=== PATIENT | male | born 1955 | race Caucasian/White ===

== ENCOUNTER 2016-09-27 09:58 | Outpatient (CLI) | payer BC | END 2016-09-27 09:59 | disposition home or self-care (01) | DX: Z79.899 Other long term (current) drug therapy (principal) ==

== ENCOUNTER 2017-02-11 09:23 | Outpatient (CLI) | payer BC | END 2017-02-11 09:24 | disposition home or self-care (01) | DX: E74.9 Disorder of carbohydrate metabolism, unspecified (principal) ==

== ENCOUNTER 2017-09-22 09:28 | Outpatient (CLI) | payer BC ==
--- NOTE | 2017-09-22 12:53 | CT Report ---
CT OF THE ABDOMEN AND PELVIS WITHOUT CONTRAST: 09/22/2017 CLINICAL INDICATION: Kidney stones. TECHNIQUE: Axial CT images of the abdomen and pelvis were obtained without oral or intravenous contrast, according to renal stone protocol. No previous CT is available for comparison. FINDINGS: Limited evaluation of the lung bases is unremarkable. ABDOMEN: The liver demonstrates diffuse decrease in attenuation, compatible with fatty infiltration. The spleen, pancreas and adrenal glands are unremarkable. There is bilateral nephrolithiasis, with calculi measuring up to 9 mm on the left and 8 mm on the right. Bilateral cortical cysts are present. No hydronephrosis is seen. The gallbladder is not dilated. No bowel dilatation, free gas, or free fluid is present. No abdominal adenopathy is seen. PELVIS: The appendix is seen in the right lower quadrant, and is normal in caliber. Image quality in the lower pelvis is degraded by streak artifact from the patient's right hip replacement. No definite distal ureterolithiasis is seen. No free fluid or pelvic adenopathy is appreciated. Osseous structures demonstrate degenerative and postsurgical changes. IMPRESSION: BILATERAL NEPHROLITHIASIS, WITHOUT EVIDENCE OF HYDRONEPHROSIS. FATTY INFILTRATION OF THE LIVER. In accordance with CT protocol optimization, one or more of the following dose reduction techniques were utilized for this exam: automated exposure control, adjustment of mA and/or KV based on patient size, or use of iterative reconstructive technique. TD: 09/22/2017 12:51
== END 2017-09-22 09:29 | disposition home or self-care (01) ==
LOC: DI 09:28
PROVIDERS: ATTEND Urology
DX: N20.0 Calculus of kidney (principal); K76.0 Fatty (change of) liver, not elsewhere classified
CPT/HCPCS: 74176

== ENCOUNTER 2017-11-11 08:00 | Outpatient (CLI) | payer BC ==
[2017-11-11 08:52] LABS: HB2 TOTAL 15.8 g/dL; HEMOGLOBIN A1C 0.74 g/dL; HEMOGLOBIN A1C % 6.4 % (4.6-6.2)
[2017-11-11 09:02] LABS: CHOL/HDL RATIO 4.5 (<5.0); CHOLESTEROL 127 mg/dL; HDL CHOLESTEROL 28 mg/dL; LDL CHOLESTEROL,CALCULATED 53 mg/dL; LDL/HDL RATIO 1.9 (<3.6); VLDL CHOLESTEROL 46 mg/dL
== END 2017-11-11 08:01 | disposition home or self-care (01) ==
LOC: LAB 08:00
PROVIDERS: ATTEND Family Medicine
DX: E11.9 Type 2 diabetes mellitus without complications (principal); E78.00 Pure hypercholesterolemia, unspecified; Z79.899 Other long term (current) drug therapy
CPT/HCPCS: 36415; 80061; 83036; 83721

== ENCOUNTER 2018-05-07 07:40 | Outpatient (CLI) | payer BC, MEDICARE ==
[2018-05-07 08:24] LABS: ALBUMIN 4.2 g/dL (3.2-5.5); ALBUMIN/GLOBULIN RATIO 1.4 (1.0-2.2); ALKALINE PHOSPHATASE 51 IU/L (42-121); ALT ALANINE AMINOTRANSFERASE 52 IU/L (10-60); AST ASPARTATE AMINOTRANSFERASE 37 IU/L (10-42); BILIRUBIN,TOTAL 0.5 mg/dL (0.2-1.0); BUN - BLOOD UREA NITROGEN 26 mg/dL (6-20); CALCIUM 9.5 mg/dL (8.5-10.3); CARBON DIOXIDE - CO2 24 mmol/L (21-32); CHLORIDE 101 mmol/L (101-111); CHOL/HDL RATIO 4.1 (<5.0); CHOLESTEROL 116 mg/dL; CREATININE 0.9 mg/dL (0.6-1.2); GFR - MDRD 85 (>89); GLUCOSE 155 mg/dL (70-100); HDL CHOLESTEROL 28 mg/dL; LDL CHOLESTEROL,CALCULATED 43 mg/dL; LDL/HDL RATIO 1.5 (<3.6); SODIUM 134 mmol/L (135-145); TOTAL PROTEIN 7.3 g/dL (6.7-8.2); VLDL CHOLESTEROL 45 mg/dL
[2018-05-07 08:32] LABS: HGB - HEMOGLOBIN 13.7 g/dL (14.0-18.0); MEAN CORPUSCULAR HEMOGLOBIN 29.5 pg (27.0-31.0); MEAN CORPUSCULAR HGB CONC 33.9 g/dL (32.0-36.0); MEAN PLATELET VOLUME 7.2 fL (7.4-11.4); RED BLOOD COUNT 4.63 10^6/uL (4.70-6.10); RED CELL DISTRIBUTION WIDTH 13.9 % (12.0-15.0); WHITE BLOOD COUNT 5.1 x10^3/uL (4.8-10.8)
[2018-05-07 08:35] LABS: HB2 TOTAL 14.8 g/dL; HEMOGLOBIN A1C 0.74 g/dL; HEMOGLOBIN A1C % 6.7 % (4.6-6.2)
[2018-05-07 09:14] LABS: BILIRUBIN,URINE NEGATIVE (NEGATIVE); GLUCOSE, URINE (UA) NEGATIVE (NEGATIVE); KETONES,URINE (UA) NEGATIVE (NEGATIVE); LEUKOCYTE ESTERASE, URINE NEGATIVE (NEGATIVE); NITRITE,URINE NEGATIVE (NEGATIVE); OCCULT BLOOD,URINE NEGATIVE (NEGATIVE); PH,URINE 5.5 PH (5.0-7.5); PROTEIN,URINE NEGATIVE (NEGATIVE); UROBILINOGEN,URINE 0.2 (NORMAL) E.U./dL (NORMAL)
[2018-05-07 09:27] LABS: CLARITY,URINE CLEAR (CLEAR)
== END 2018-05-07 07:41 | disposition home or self-care (01) ==
LOC: LAB 07:40
PROVIDERS: ATTEND Family Medicine
DX: E11.9 Type 2 diabetes mellitus without complications (principal); E78.1 Pure hyperglyceridemia; Z79.899 Other long term (current) drug therapy; I10 Essential (primary) hypertension; R80.9 Proteinuria, unspecified; M19.90 Unspecified osteoarthritis, unspecified site
CPT/HCPCS: 36415; 80053; 80061; 81001; 81003; 83036; 83721; 84443; 85027; 87086

== ENCOUNTER 2018-08-18 11:15 | Outpatient (CLI) | payer MEDICARE | END 2018-08-18 11:16 | disposition home or self-care (01) | LOC: LAB 11:15 | PROVIDERS: ATTEND Urology | DX: C61 Malignant neoplasm of prostate (principal) | CPT/HCPCS: 36415; 84153 ==

== ENCOUNTER 2019-01-01 09:30 | Outpatient (CLI) | payer MEDICARE ==
--- NOTE | 2019-01-01 15:29 | XRAY Report ---
Reason: THORACIC PAIN Procedure Date: 01/01/2019 Accession Number: [id number] / [id number] Procedure: XR - Thoracic Spine 2 View CPT Code: FULL RESULT: EXAM: THORACIC SPINE RADIOGRAPHY EXAM DATE: 01/01/2019 09:37 AM. CLINICAL HISTORY: Chronic thoracic spine pain. COMPARISON: ABDOMEN/PELVIS W/O 09/22/2017 9:45 AM. TECHNIQUE: 2 views. FINDINGS: Alignment: Mild dextroscoliotic curvature of the upper thoracic spine at approximately T3-T4 measures 5 degrees. No thoracic spondylolisthesis. There is however mild grade 1 anterolisthesis at the C4-C5 level measuring 3 mm. Bones: Diffuse osteopenia present. No compression fracture or bony lesion identified. Disks: Mild to moderate mid to upper thoracic degenerative disk disease present. There is also moderate C5-C7 and mild CT-C5 cervical degenerative disk disease. Soft Tissues: Normal. The visualized lungs and cardiomediastinal silhouette are normal. IMPRESSION: 1. Mild to moderate cervical and thoracic degenerative disk disease as described. 2. Mild upper thoracic dextroscoliosis. 3. Grade 1 anterolisthesis C4-C5. RADIA
== END 2019-01-01 23:59 | disposition home or self-care (01) ==
LOC: DI 09:30
PROVIDERS: ATTEND Family Medicine
DX: M51.34 Other intervertebral disc degeneration, thoracic region (principal); M50.322 Other cervical disc degeneration at C5-C6 level; M43.12 Spondylolisthesis, cervical region; M41.84 Other forms of scoliosis, thoracic region
CPT/HCPCS: 72070

== ENCOUNTER 2019-01-04 08:10 | Outpatient (CLI) | payer MEDICARE ==
[2019-01-04 09:14] LABS: ALBUMIN 4.1 g/dL (3.2-5.5); ALBUMIN/GLOBULIN RATIO 1.3 (1.0-2.2); ALKALINE PHOSPHATASE 49 IU/L (42-121); ALT ALANINE AMINOTRANSFERASE 52 IU/L (10-60); AST ASPARTATE AMINOTRANSFERASE 40 IU/L (10-42); BILIRUBIN,TOTAL 0.6 mg/dL (0.2-1.0); BUN - BLOOD UREA NITROGEN 20 mg/dL (6-20); CHOL/HDL RATIO 4.2 (<5.0); CHOLESTEROL 143 mg/dL; CREATININE 1.1 mg/dL (0.6-1.2); GFR - MDRD 67 (>89); HDL CHOLESTEROL 34 mg/dL; LDL CHOLESTEROL,CALCULATED 67 mg/dL; TOTAL PROTEIN 7.3 g/dL (6.7-8.2); VLDL CHOLESTEROL 42 mg/dL
[2019-01-04 09:37] LABS: HB2 TOTAL 14.6 g/dL; HEMOGLOBIN A1C 0.73 g/dL; HEMOGLOBIN A1C % 6.7 % (4.6-6.2)
[2019-01-04 09:57] LABS: CALCIUM 9.7 mg/dL (8.5-10.3); CARBON DIOXIDE - CO2 23 mmol/L (21-32); CHLORIDE 102 mmol/L (101-111); GLUCOSE 148 mg/dL (70-100); SODIUM 137 mmol/L (135-145)
== END 2019-01-04 08:11 | disposition home or self-care (01) ==
LOC: LAB 08:10
PROVIDERS: ATTEND Family Medicine
DX: E11.9 Type 2 diabetes mellitus without complications (principal); I10 Essential (primary) hypertension; E78.1 Pure hyperglyceridemia
CPT/HCPCS: 36415; 80053; 80061; 83036; 83721

== ENCOUNTER 2019-08-02 10:00 | Outpatient (CLI) | payer MEDICARE ==
[2019-08-02 10:42] LABS: ALBUMIN 4.3 g/dL (3.2-5.5); BILIRUBIN,DIRECT 0.1 mg/dL (0.1-0.5); BILIRUBIN,TOTAL 0.5 mg/dL (0.2-1.0); TOTAL PROTEIN 7.5 g/dL (6.7-8.2)
[2019-08-03 12:05] LABS: HEPATITIS A IGM NON-REACTIVE (NON-REACTIVE); HEPATITIS B SURFACE ANTIGEN NON-REACTIVE (NON-REACTIVE); HEPATITIS C ANTIBODY NON-REACTIVE (NON-REACTIVE)
== END 2019-08-02 10:01 | disposition home or self-care (01) ==
LOC: LAB 10:00
PROVIDERS: ATTEND Family Medicine
DX: E78.00 Pure hypercholesterolemia, unspecified (principal); R74.0 Nonspecific elevation of levels of transaminase and lactic acid dehydrogenase [LDH]; E66.9 Obesity, unspecified; N18.3 Chronic kidney disease, stage 3 (moderate)
CPT/HCPCS: 36415; 80074; 80076

== ENCOUNTER 2020-09-07 07:28 | Outpatient (CLI) | payer MEDICARE ==
[2020-09-07 07:59] LABS: BILIRUBIN,URINE NEGATIVE (NEGATIVE); GLUCOSE, URINE (UA) NEGATIVE (NEGATIVE); KETONES,URINE (UA) NEGATIVE (NEGATIVE); LEUKOCYTE ESTERASE, URINE NEGATIVE (NEGATIVE); NITRITE,URINE NEGATIVE (NEGATIVE); OCCULT BLOOD,URINE TRACE-INTA (NEGATIVE); PROTEIN,URINE NEGATIVE (NEGATIVE); UROBILINOGEN,URINE 0.2 (NORMAL) E.U./dL (NORMAL)
[2020-09-07 08:01] LABS: CLARITY,URINE CLEAR (CLEAR)
[2020-09-07 08:10] LABS: BACTERIA,URINE Few /HPF (None Seen); CASTS, URINE 0-2 Hyaline Casts /LPF; MUCUS,URINE Marked Strands; RBC,URINE 0-5 /HPF (0-5); SQUAMOUS EPITHELIAL CELL,UR RARE Squamous (<= Few)
[2020-09-07 08:55] LABS: ALBUMIN 4.2 g/dL (3.2-5.5); ALBUMIN/GLOBULIN RATIO 1.5 (1.0-2.2); ALKALINE PHOSPHATASE 55 IU/L (42-121); ALT ALANINE AMINOTRANSFERASE 50 IU/L (10-60); AST ASPARTATE AMINOTRANSFERASE 35 IU/L (10-42); BILIRUBIN,TOTAL 0.4 mg/dL (0.2-1.0); BUN - BLOOD UREA NITROGEN 30 mg/dL (6-20); CARBON DIOXIDE - CO2 23 mmol/L (21-32); CHLORIDE 102 mmol/L (101-111); CHOL/HDL RATIO 3.9 (<5.0); CHOLESTEROL 124 mg/dL; CREATININE 1.2 mg/dL (0.6-1.2); GLUCOSE 141 mg/dL (70-100); HDL CHOLESTEROL 32 mg/dL; LDL CHOLESTEROL,CALCULATED 47 mg/dL; LDL/HDL RATIO 1.5 (<3.6); VLDL CHOLESTEROL 45 mg/dL
[2020-09-07 12:42] LABS: HEMOGLOBIN A1c% 6.8 % (4.27-6.07)
== END 2020-09-07 07:29 | disposition home or self-care (01) ==
LOC: LAB 07:28
PROVIDERS: ATTEND Family Medicine
DX: E11.9 Type 2 diabetes mellitus without complications (principal); Z79.899 Other long term (current) drug therapy; E03.9 Hypothyroidism, unspecified; E66.9 Obesity, unspecified; C61 Malignant neoplasm of prostate; E78.00 Pure hypercholesterolemia, unspecified
CPT/HCPCS: 36415; 80053; 80061; 81001; 83036; 83721; 84443

== ENCOUNTER 2022-09-04 09:37 | Outpatient (CLI) | payer MEDICARE ==
--- NOTE | 2022-09-04 19:24 | XRAY Report ---
PROCEDURE: Abdomen 1 View X-Ray INDICATIONS: NEPHROLTHIASIS TECHNIQUE: One view of the abdomen acquired. COMPARISON: CT of abdomen and pelvis dated 09/22/2017 FINDINGS: Surgical changes and devices: There is prior right total hip arthroplasty. Bowel: Bowel gas pattern is normal. Soft tissues: Multiple calcifications are seen projecting in the region of bilateral kidneys measures 5 mm in upper and lower pole of right kidney and up to 6 mm in size and lower pole of left kidney. V isualized solid organ contours appear normal in size. Bones: No suspicious bony lesions. IMPRESSION: Bilateral renal calculi as above. No bowel obstruction or gross free air. Reviewed by: Keyon Longoria MD on 09/04/2022 7:23 PM PST Approved by: Keyon Longoria MD on 09/04/2022 7:23 PM PST Station ID: [id number]
== END 2022-09-04 09:38 | disposition home or self-care (01) ==
LOC: DI 09:37
PROVIDERS: ATTEND Urology
DX: Z87.442 Personal history of urinary calculi (principal); N20.0 Calculus of kidney; Z12.5 Encounter for screening for malignant neoplasm of prostate
CPT/HCPCS: 36415; 74018; G0103; 84153

== ENCOUNTER 2022-09-04 09:41 | Outpatient (CLI) | payer MEDICARE | END 2022-09-04 09:42 | disposition home or self-care (01) | LOC: LAB 09:41 | PROVIDERS: ATTEND Urology | DX: Z12.5 Encounter for screening for malignant neoplasm of prostate (principal) | CPT/HCPCS: 36415; G0103; 84153 ==

== ENCOUNTER 2022-09-18 19:32 | Emergency (ER) | payer MEDICARE ==
[2022-09-18 20:27] LABS: BASOPHILS # (AUTO) 0.1 10^3/uL (0.0-0.1); BASOPHILS % (AUTO) 0.8 %; EOSINOPHILS # (AUTO) 0.4 10^3/uL (0.0-0.7); EOSINOPHILS % (AUTO) 6.5 %; HCT - HEMATOCRIT 41.4 % (42.0-52.0); HGB - HEMOGLOBIN 13.5 g/dL (14.0-18.0); LYMPHOCYTES # (AUTO) 1.2 10^3/uL (1.5-3.5); LYMPHOCYTES % (AUTO) 18.5 %; MEAN CORPUSCULAR HEMOGLOBIN 27.8 pg (27.0-31.0); MEAN CORPUSCULAR HGB CONC 32.6 g/dL (32.0-36.0); MEAN CORPUSCULAR VOLUME 85.2 fL (80.0-94.0); MONOCYTES # (AUTO) 0.5 10^3/uL (0.0-1.0); MONOCYTES % (AUTO) 7.2 %; NEUTROPHILS # (AUTO) 4.4 10^3/uL (1.5-6.6); NEUTROPHILS % (AUTO) 66.2 %; PLT - PLATELET COUNT 289 10^3/uL (130-450); RED BLOOD COUNT 4.86 10^6/uL (4.70-6.10); RED CELL DISTRIBUTION WIDTH 13.1 % (12.0-15.0); WHITE BLOOD COUNT 6.7 x10^3/uL (4.8-10.8)
--- NOTE | 2022-09-18 20:35 | ED Physician Documentation ---
PD HPI CHEST PAIN - Stated complaint Stated Complaint: CHEST PX - Chief complaint Chief Complaint: Cardiac - History obtained from History obtained from: Patient - History of Present Illness Recently seen: Not recently seen - Additional information Additional information: HPI from patient. Approximately 30 to 45 minutes prior to arrival to the emergency department, patient was at home lying in bed awake when he had a sudden onset of midline/right parasternal chest pain. He describes severe chest pain that did not have any apparent exacerbating or ameliorating factors. He denies shortness of breath, although he says he does not recall because he was focused on the intense chest pain. Patient's spouse, in the ER at bedside, says that she noted, and even commented to the patient, that he appeared to be having trouble breathing. The symptoms have improved significantly by the time of this evaluation. Patient says the only the time he had a similar sensation was approximately 15 years ago when he had a nuclear stress test. Per his description, the discomfort he had at that time was when he was injected with medication for the stress test, rather than pain that preceded the procedure. Patient has no known cardiac medical history/problems. Patient underwent right total knee replacement June 2022 (3 months ago). He says he has had right knee and, to a lesser extent, right lower leg swelling since the procedure, although this has been steadily improving. Denies fever, cough/hemoptysis. Review of Systems Constitutional: denies: Fever, Chills, Sweats Cardiac: reports: Chest pain / pressure, Pedal edema. denies: Palpitations Respiratory: reports: Dyspnea. denies: Cough GI: reports: Reviewed and negative PD PAST MEDICAL HISTORY - Past Medical History Past Medical History: Yes Cardiovascular: Hypertension, High cholesterol Endocrine/Autoimmune: Type 2 diabetes - Past Surgical History Past Surgical History: Yes Other past surgical history: TKR - Present Medications Home Medications: Ambulatory Orders Medication Instructions Recorded Confirmed Amlodipine Besylate [Norvasc] 10 mg PO 09/18/22 Aspirin [Aspirin EC] 81 mg PO 09/18/22 Atorvastatin [Lipitor] 40 mg PO DAILY 09/18/22 09/18/22 Bupropion HCl [Wellbutrin Xl] 300 mg PO 09/18/22 Citalopram Hydrobromide [Celexa] 20 mg PO DAILY 09/18/22 09/18/22 Fenofibrate Nanocrystallized 145 mg PO 09/18/22 [Tricor] Omeprazole Magnesium 20 mg PO 09/18/22 Ropinirole HCl 0.5 mg PO DAILY 09/18/22 09/18/22 Valsartan/Hydrochlorothiazide 320 mg PO DAILY 09/18/22 09/18/22 [Diovan Hct 320-25 mg Tablet] atenoloL [Tenormin] 25 mg PO DAILY 09/18/22 09/18/22 metFORMIN [Glucophage] 500 mg PO ONCE 09/18/22 09/18/22 traMADol [Ultram] 50 mg PO Q4HR PRN 09/18/22 09/18/22 traZODone [Desyrel] 50 mg PO BID 09/18/22 09/18/22 - Allergies Allergies/Adverse Reactions: Allergies Allergy/AdvReac Type Severity Reaction Status Date / Time No Known Drug Allergies Allergy Verified 09/18/22 19:51 PD ED PE NORMAL - Vitals Vital signs reviewed: Yes - General General: Alert and oriented X 3, No acute distress, Well developed/nourished - Cardiac Cardiac: RRR, No murmur, No gallop, No rub - Respiratory Respiratory: No respiratory distress, Clear bilaterally - Abdomen Abdomen: Soft, Non tender - Extremities Extremities: Other (mild right knee edema without lower leg edema either leg) Results - Vitals Vitals: Oxygen O2 Source Room air - EKG (time done) No standard instances Rate: Rate (enter#) (94) Rhythm: NSR [place]: Normal Intervals: Normal [place] QRS: Normal Ischemia: Normal ST segments - Labs Labs: Laboratory Tests 09/18/22 09/18/22 09/18/22 20:23 20:23 20:23 WBC 6.7 RBC 4.86 Hgb 13.5 L Hct 41.4 L MCV 85.2 MCH 27.8 MCHC 32.6 RDW 13.1 Plt Count 289 MPV 9.0 Neut # (Auto) 4.4 Lymph # (Auto) 1.2 L [place] # (Auto) 0.5 Eos # (Auto) 0.4 Baso # (Auto) 0.1 Absolute Nucleated RBC 0.00 Nucleated RBC % 0.0 Sodium 134 L Potassium 4.2 Chloride 100 L Carbon Dioxide 23 Anion Gap 11.0 BUN 26 H Creatinine 1.0 Estimated GFR (MDRD) 74 L Glucose 183 H Calcium 9.9 Total Bilirubin 0.4 AST 48 H ALT 63 H Alkaline Phosphatase 58 Troponin I High Sens 4.2 Total Protein 7.0 Albumin 3.8 Globulin 3.2 Albumin/Globulin Ratio 1.2 Lipase 66 H - Rads (name of study) chest xray Radiology: Prelim report reviewed, EMP read indepedently, See rad report CTA chest Radiology: Prelim report reviewed, See rad report PD Medical Decision Making - ED course Complexity details: reviewed results, re-evaluated patient, considered differential, d/w patient ED course: No concerning/diagnostic findings on blood tests including CBC, ER abdominal panel, hs-cTn. Unremarkable CXR. Given the sudden onset of chest pain at rest with dyspnea, and considering his somewhat recent right TKR, PE is considered and CTA chest performed; there are no concerning nor diagnostic findings on this study, including PE, dissection, aneurysm. Incidental note of non-obstructing left intrarenal stones as well as of hepatic steatosis. I reviewed these findings with patient; given that his transaminases are both (very) mildly elevated, the combination of hepatic steatosis and elevated AST/ALT might warrant reevaluation by PMD and I advised patient to follow up both for reevaluation of tonight's symptoms as well as to discuss any relevant abnormalities on CT and blood tests. Departure - Departure Disposition: 01 Home, Self Care Clinical Impression: Chest pain Qualifiers: Chest pain type: unspecified Qualified Code(s): R07.9 - Chest pain, unspecified Condition: Good Instructions: ED Chest Pain Atypical Unkn Cause Comments: As we discussed, there are no concerning findings on tonight's tests including the blood test, EKG, CT scan of your chest. There were some abnormalities that are very slight and are not of immediate concern, but your primary care provider might want to do some further testing regarding both the possible nature of the cause of tonight's symptoms as well as the abnormalities noted on the blood test. The CAT scans abnormalities included hepatic steatosis ("fatty liver"). This is usually not a concerning finding, and can be followed up with your primary care provider. You had very mild abnormalities in your liver enzyme tests (AST/ALT). Also noted on the CAT scan were several left kidney stones, but these are in the kidney; none of the stones is causing any blockage and thus are not causing the symptoms. Discharge Date/Time: 09/19/22 01:06
[2022-09-18 20:42] LABS: ALBUMIN 3.8 g/dL (3.2-5.5); ALBUMIN/GLOBULIN RATIO 1.2 (1.0-2.2); BILIRUBIN,TOTAL 0.4 mg/dL (0.2-1.0); CALCIUM 9.9 mg/dL (8.5-10.3); POTASSIUM 4.2 mmol/L (3.5-5.0)
[2022-09-18] MEDS ORDERED: iohexoL-300 100 ML VIAL ONE (21:07)
--- NOTE | 2022-09-18 21:07 | XRAY Report ---
PROCEDURE: Chest 2 View X-Ray INDICATIONS: chest pain TECHNIQUE: 2 views of the chest were acquired. COMPARISON: None. FINDINGS: Surgical changes and devices: None. Lungs and pleura: No pleural effusions or pneumothorax. Lungs are clear. Mediastinum: Mediastinal contours are normal. Heart size is normal. Bones and chest wall: No suspicious bony abnormalities. Degenerative changes of the right shoulder. Degenerative disc and endplate changes in the upper thoracic spine. Soft tissues appear unremarkable. IMPRESSION: No acute cardiopulmonary disease. Reviewed by: Jenny Pretty MD on 09/18/2022 9:06 PM PST Approved by: Jenny Pretty MD on 09/18/2022 9:06 PM PST Station ID: [id number]
[2022-09-18] MEDS ORDERED: iohexoL-300 100 ML VIAL IVP ONE (21:47)
--- NOTE | 2022-09-18 23:22 | CT Report ---
PROCEDURE: ANGIO CHEST W/WO INDICATIONS: pleuritic chest pain, recent TKR CONTRAST: Omni 300 100ml TECHNIQUE: After the administration of intravenous contrast, 2 mm axial images were acquired from the pulmonary apices to the posterior costophrenic angles during the arterial phase. In addition, 1 mm lung kernel and 5 mm soft tissue kernel reconstructions were performed. 3-dimensional coronal oblique maximum int ensity projection (MIP) reformats, 8 mm axial MIP, and 5 mm coronal and sagittal MPR reformats were t hen performed through the thorax. For radiation dose reduction, the following was used: automated exp osure control, adjustment of mA and/or kV according to patient size. COMPARISON: None FINDINGS: Image quality: Excellent. Pulmonary arteries: Pulmonary arteries are normal in size, and demonstrate no intraluminal filling d efects to suggest central pulmonary embolism. Lungs and pleura: Central and peripheral airways are patent. No parenchymal opacities or consolidativ e changes. No unusual nodules or masses. Mediastinum: Heart size is normal, without pericardial effusion. Borderline mediastinal/subcarinal a denopathy and prominent right distal esophageal lymph node measuring 1.3 cm short axis. No hilar ignacio opathy. Thoracic aorta is normal in caliber and enhancement. Esophagus is normal in caliber, without hiatal hernia. Bones and chest wall: No suspicious bony lesions. Multilevel degenerative disc and endplate change in the thoracic spine, most pronounced in the mid thoracic spine. Ribs and thoracic spine appear inta ct throughout. No axillary or supraclavicular adenopathy. The thyroid is normal in size and there a re no incidental findings. Abdomen: The visible upper abdomen demonstrates marked hepatic steatosis and several nonobstructing l eft upper pole intrarenal calculi. There are occasional calcifications in the tail of pancreas indica te chronic pancreatitis changes. IMPRESSION: 1. No pulmonary embolus. 2. No significant pulmonary parenchymal opacities. 3. Borderline and nonspecific mediastinal adenopathy without visible etiology. 4. Hepatic steatosis. 5. Several nonobstructing left upper pole intrarenal calculi. Reviewed by: Jenny Pretty MD on 09/18/2022 11:21 PM PST Approved by: Jenny Pretty MD on 09/18/2022 11:21 PM PST Station ID: [id number]
[2022-09-19 01:07] VITALS: BP 128/84
== END 2022-09-19 01:06 | disposition home or self-care (01) ==
LOC: ED 19:32
DX: R07.89 Other chest pain (principal); I10 Essential (primary) hypertension; E11.9 Type 2 diabetes mellitus without complications; Z96.651 Presence of right artificial knee joint; Z79.899 Other long term (current) drug therapy; Z79.82 Long term (current) use of aspirin; Z79.84 Long term (current) use of oral hypoglycemic drugs
CPT/HCPCS: 36415; 71046; 71275; 80053; 83690; 84484; 85025; 93005; 99283; 99284; Q9967

== ENCOUNTER 2022-11-19 08:48 | Outpatient (CLI) | payer MEDICARE ==
[2022-11-19 09:31] LABS: BASOPHILS % (AUTO) 0.7 %; EOSINOPHILS # (AUTO) 0.4 10^3/uL (0.0-0.7); EOSINOPHILS % (AUTO) 7.3 %; HCT - HEMATOCRIT 42.1 % (42.0-52.0); HGB - HEMOGLOBIN 13.8 g/dL (14.0-18.0); LYMPHOCYTES % (AUTO) 16.1 %; MEAN CORPUSCULAR HGB CONC 32.8 g/dL (32.0-36.0); MEAN CORPUSCULAR VOLUME 85.4 fL (80.0-94.0); MEAN PLATELET VOLUME 8.7 fL (7.4-11.4); MONOCYTES # (AUTO) 0.4 10^3/uL (0.0-1.0); MONOCYTES % (AUTO) 6.1 %; NEUTROPHILS # (AUTO) 4.2 10^3/uL (1.5-6.6); NEUTROPHILS % (AUTO) 69.1 %; PLT - PLATELET COUNT 275 10^3/uL (130-450); RED BLOOD COUNT 4.93 10^6/uL (4.70-6.10); RED CELL DISTRIBUTION WIDTH 13.9 % (12.0-15.0)
[2022-11-19 09:46] LABS: ALBUMIN 4.1 g/dL (3.2-5.5); ALBUMIN/GLOBULIN RATIO 1.2 (1.0-2.2); ALKALINE PHOSPHATASE 56 IU/L (42-121); ALT ALANINE AMINOTRANSFERASE 62 IU/L (10-60); AST ASPARTATE AMINOTRANSFERASE 62 IU/L (10-42); BILIRUBIN,TOTAL 0.6 mg/dL (0.2-1.0); BUN - BLOOD UREA NITROGEN 24 mg/dL (6-20); CALCIUM 9.7 mg/dL (8.5-10.3); CARBON DIOXIDE - CO2 25 mmol/L (21-32); CHLORIDE 99 mmol/L (101-111); CHOL/HDL RATIO 4.8 (<5.0); CHOLESTEROL 139 mg/dL; GFR - MDRD 74 (>89); GLUCOSE 205 mg/dL (70-100); HDL CHOLESTEROL 29 mg/dL; LDL CHOLESTEROL,CALCULATED 39 mg/dL; LDL/HDL RATIO 1.3 (<3.6); POTASSIUM 4.4 mmol/L (3.5-5.0); SODIUM 134 mmol/L (135-145); TOTAL PROTEIN 7.4 g/dL (6.7-8.2); TRIGLYCERIDES 356 mg/dL; VLDL CHOLESTEROL 71 mg/dL
[2022-11-19 14:35] LABS: ESTIMATED AVERAGE GLUCOSE 206 mg/dL (70-100); HEMOGLOBIN A1c% 8.8 % (4.27-6.07)
== END 2022-11-19 08:49 | disposition home or self-care (01) ==
LOC: LAB 08:48
PROVIDERS: ATTEND Family Medicine
DX: E11.9 Type 2 diabetes mellitus without complications (principal); C61 Malignant neoplasm of prostate; E66.9 Obesity, unspecified; E78.00 Pure hypercholesterolemia, unspecified; Z12.5 Encounter for screening for malignant neoplasm of prostate; Z79.899 Other long term (current) drug therapy; N18.30 Chronic kidney disease, stage 3 unspecified
CPT/HCPCS: 36415; 80053; 80061; 83036; 83721; 84443; 85025

== ENCOUNTER 2023-08-02 12:46 | Outpatient (CLI) | payer MEDICARE ==
--- NOTE | 2023-08-03 11:59 | XRAY Report ---
PROCEDURE: Cervical Spine 2-3V INDICATIONS: CERVICALGIA TECHNIQUE: 4 view(s) of the cervical spine were acquired. COMPARISON: None. FINDINGS: Bones lateral view extends from the skull base to C6. C7 is not well evaluated. Within these limitati ons, no acute fracture or traumatic subluxation. Moderate to severe multilevel degenerative changes w ith anterior osteophytosis, disc height loss and facet/uncal arthropathy, worst at C5-C6. Straighteni ng of the normal cervical lordosis with grade 1 anterolisthesis of C4 on C5 of approximately 2 mm. Th e lateral masses of C1 appear intact on the odontoid view. No suspicious bony lesions. Soft tissues: No prevertebral soft tissue swelling. IMPRESSION: C7 is not well evaluated on lateral view. 1.Within these limitations, no acute fracture or traumatic subluxation of the visualized cervical spi ne. 2.Moderate to severe multilevel degenerative changes, worse at C5-C6. If clinical symptoms persist, c onsider MRI for further evaluation. Reviewed by: Moody Gandhi MD on 08/03/2023 11:58 AM PST Approved by: Moody Gandhi MD on 08/03/2023 11:58 AM PST Station ID: [id number]
== END 2023-08-02 12:47 | disposition home or self-care (01) ==
LOC: DI 12:46
PROVIDERS: ATTEND Family Medicine
DX: M47.812 Spondylosis without myelopathy or radiculopathy, cervical region (principal)

== ENCOUNTER 2023-11-04 08:15 | Outpatient (CLI) | payer MEDICARE ==
[2023-11-04 08:32] LABS: BASOPHILS # (AUTO) 0.1 10^3/uL (0.0-0.1); EOSINOPHILS # (AUTO) 0.5 10^3/uL (0.0-0.7); EOSINOPHILS % (AUTO) 7.7 %; HCT - HEMATOCRIT 41.1 % (42.0-52.0); HGB - HEMOGLOBIN 13.6 g/dL (14.0-18.0); LYMPHOCYTES # (AUTO) 0.9 10^3/uL (1.5-3.5); LYMPHOCYTES % (AUTO) 15.2 %; MEAN CORPUSCULAR HEMOGLOBIN 28.7 pg (27.0-31.0); MEAN CORPUSCULAR HGB CONC 33.1 g/dL (32.0-36.0); MEAN CORPUSCULAR VOLUME 86.7 fL (80.0-94.0); MEAN PLATELET VOLUME 8.8 fL (7.4-11.4); MONOCYTES # (AUTO) 0.3 10^3/uL (0.0-1.0); MONOCYTES % (AUTO) 5.7 %; NEUTROPHILS # (AUTO) 4.2 10^3/uL (1.5-6.6); NEUTROPHILS % (AUTO) 69.7 %; PLT - PLATELET COUNT 291 10^3/uL (130-450); RED BLOOD COUNT 4.74 10^6/uL (4.70-6.10); RED CELL DISTRIBUTION WIDTH 13.3 % (12.0-15.0)
[2023-11-04 08:45] LABS: ALBUMIN 4.2 g/dL (3.2-5.5); ALBUMIN/GLOBULIN RATIO 1.7 (1.0-2.2); ALKALINE PHOSPHATASE 45 IU/L (42-121); ALT ALANINE AMINOTRANSFERASE 43 IU/L (10-60); AST ASPARTATE AMINOTRANSFERASE 27 IU/L (10-42); BILIRUBIN,TOTAL 0.4 mg/dL (0.2-1.0); BUN - BLOOD UREA NITROGEN 23 mg/dL (6-20); CALCIUM 10.1 mg/dL (8.5-10.3); CARBON DIOXIDE - CO2 24 mmol/L (21-32); CHLORIDE 102 mmol/L (101-111); CHOL/HDL RATIO 3.9 (<5.0); CHOLESTEROL 134 mg/dL; CREATININE 1.1 mg/dL (0.6-1.3); GFR - MDRD 66 (>89); GLUCOSE 160 mg/dL (74-104); HDL CHOLESTEROL 34 mg/dL; LDL CHOLESTEROL,CALCULATED 53 mg/dL; LDL/HDL RATIO 1.6 (<3.6); POTASSIUM 4.2 mmol/L (3.5-4.5); SODIUM 134 mmol/L (135-145); TOTAL PROTEIN 6.7 g/dL (6.4-8.9); TRIGLYCERIDES 235 mg/dL (48-352); VLDL CHOLESTEROL 47 mg/dL
[2023-11-04 08:59] LABS: THYROID STIMULATING HORMONE 0.88 uIU/mL (0.34-5.60)
[2023-11-04 09:37] LABS: CREATININE,URINE 194.4 mg/dL; MICROALBUMIN,URINE 6.6 mg/dL
[2023-11-04 10:02] LABS: ESTIMATED AVERAGE GLUCOSE 166 mg/dL (70-100); HEMOGLOBIN A1c% 7.4 % (4.27-6.07)
== END 2023-11-04 08:16 | disposition home or self-care (01) ==
LOC: LAB 08:15
PROVIDERS: ATTEND Family Medicine
DX: I12.9 Hypertensive chronic kidney disease with stage 1 through stage 4 chronic kidney disease, or unspecified chronic kidney disease (principal); E11.22 Type 2 diabetes mellitus with diabetic chronic kidney disease; N18.30 Chronic kidney disease, stage 3 unspecified; E78.1 Pure hyperglyceridemia; G25.81 Restless legs syndrome; Z12.5 Encounter for screening for malignant neoplasm of prostate; Z13.220 Encounter for screening for lipoid disorders; Z13.29 Encounter for screening for other suspected endocrine disorder
CPT/HCPCS: 36415; 80053; 80061; 82043; 82570; 83036; 84443; 85025; G0103; 83721; 84153

== ENCOUNTER 2023-11-11 08:27 | Outpatient (CLI) | payer MEDICARE | END 2023-11-11 08:28 | disposition home or self-care (01) | LOC: LAB 08:27 | PROVIDERS: ATTEND Physician Assistant Medical | DX: Z12.5 Encounter for screening for malignant neoplasm of prostate (principal); Z85.46 Personal history of malignant neoplasm of prostate | CPT/HCPCS: 36415; G0103; 84153 ==

== ENCOUNTER 2023-11-12 11:39 | Outpatient (CLI) | payer MEDICARE ==
--- NOTE | 2023-11-12 16:29 | XRAY Report ---
PROCEDURE: Abdomen 1 V INDICATIONS: KIDNEY STONE TECHNIQUE: One view of the abdomen acquired. COMPARISON: Abdominal radiographs 09/04/[address] abdomen/pelvis 09/22/2017. FINDINGS: Surgical changes and devices: Right total hip arthroplasty. Bowel: Bowel gas pattern is normal. Soft tissues: Calcifications are seen projecting over the renal shadows bilaterally. Visualized solid organ contours appear normal in size. Bones: No suspicious bony lesions. Multilevel degenerative changes are seen in the spine. IMPRESSION: Bilateral renal calculi appear similar when compared to the exam from 09/04/2022. Reviewed by: Gadiel Vazquez MD on 11/12/2023 4:27 PM PDT Approved by: Gadiel Vazquez MD on 11/12/2023 4:27 PM PDT Station ID: [id number]
== END 2023-11-12 11:40 | disposition home or self-care (01) ==
LOC: DI 11:39
PROVIDERS: ATTEND Physician Assistant Medical
DX: N20.0 Calculus of kidney (principal); Z12.5 Encounter for screening for malignant neoplasm of prostate; Z85.46 Personal history of malignant neoplasm of prostate

== ENCOUNTER 2023-11-18 11:16 | Outpatient (CLI) | payer MEDICARE ==
--- NOTE | 2023-11-18 17:27 | XRAY Report ---
Shoulder 2+V LT HISTORY: LEFT SHOULDER PAIN TECHNIQUE: Shoulder 2+V LT COMPARISON: None. FINDINGS/IMPRESSION: Mild degenerative changes of the left acromioclavicular joint. Moderate degenerative changes of the l eft glenohumeral joint. No acute fracture or dislocation. Moderate left lower cervical facet arthropathy, incompletely evaluated. Reviewed by: Raisa Maki MD on 11/18/2023 5:26 PM PDT Approved by: Raisa Maki MD on 11/18/2023 5:26 PM PDT Station ID: [id number]
--- NOTE | 2023-11-18 17:31 | XRAY Report ---
Foot 3+V RT HISTORY: RIGHT FOOT PAIN TECHNIQUE: Foot 3+V RT COMPARISON: None. FINDINGS/IMPRESSION: Mild degenerative changes of the first metatarsophalangeal joint. Moderate degenerative changes of th e midfoot. There is lateral subluxation of the second metatarsal base at the second tarsometatarsal j oint, concerning for Lisfranc ligament injury. Small ossification about the medial malleolus, represe nting prior injury. Mild degenerative changes at tibiotalar joint. Small plantar calcaneus enthesophy te. No acute fracture or dislocation. Reviewed by: Raisa Maki MD on 11/18/2023 5:30 PM PDT Approved by: Raisa Maki MD on 11/18/2023 5:30 PM PDT Station ID: [id number]
== END 2023-11-18 11:17 | disposition home or self-care (01) ==
LOC: DI 11:16
PROVIDERS: ATTEND Family Medicine
DX: M19.012 Primary osteoarthritis, left shoulder (principal); M47.812 Spondylosis without myelopathy or radiculopathy, cervical region; M19.071 Primary osteoarthritis, right ankle and foot; S93.321A Subluxation of tarsometatarsal joint of right foot, initial encounter; M77.31 Calcaneal spur, right foot

== ENCOUNTER 2024-04-07 08:51 | Outpatient (CLI) | payer MEDICARE ==
[2024-04-07 09:07] LABS: BASOPHILS # (AUTO) 0.1 10^3/uL (0.0-0.1); BASOPHILS % (AUTO) 0.9 %; EOSINOPHILS # (AUTO) 0.6 10^3/uL (0.0-0.7); EOSINOPHILS % (AUTO) 8.6 %; HCT - HEMATOCRIT 41.8 % (42.0-52.0); HGB - HEMOGLOBIN 13.7 g/dL (14.0-18.0); LYMPHOCYTES % (AUTO) 14.6 %; MEAN CORPUSCULAR HEMOGLOBIN 28.5 pg (27.0-31.0); MEAN CORPUSCULAR HGB CONC 32.8 g/dL (32.0-36.0); MEAN CORPUSCULAR VOLUME 86.9 fL (80.0-94.0); MEAN PLATELET VOLUME 8.8 fL (7.4-11.4); MONOCYTES # (AUTO) 0.4 10^3/uL (0.0-1.0); MONOCYTES % (AUTO) 6.2 %; NEUTROPHILS # (AUTO) 4.7 10^3/uL (1.5-6.6); NEUTROPHILS % (AUTO) 68.8 %; PLT - PLATELET COUNT 311 10^3/uL (130-450); RED BLOOD COUNT 4.81 10^6/uL (4.70-6.10); RED CELL DISTRIBUTION WIDTH 13.5 % (12.0-15.0); WHITE BLOOD COUNT 6.8 x10^3/uL (4.8-10.8)
[2024-04-07 09:17] LABS: BILIRUBIN,URINE NEGATIVE (NEGATIVE); GLUCOSE, URINE (UA) 250 mg/dL (NEGATIVE); KETONES,URINE (UA) NEGATIVE (NEGATIVE); LEUKOCYTE ESTERASE, URINE NEGATIVE (NEGATIVE); NITRITE,URINE NEGATIVE (NEGATIVE); OCCULT BLOOD,URINE NEGATIVE (NEGATIVE); PROTEIN,URINE NEGATIVE (NEGATIVE); UROBILINOGEN,URINE 0.2 (NORMAL) E.U./dL (NORMAL)
[2024-04-07 09:20] LABS: CALCIUM 10.5 mg/dL (8.5-10.3); CREATININE 1.2 mg/dL (0.6-1.3); POTASSIUM 4.3 mmol/L (3.5-4.5)
[2024-04-07 09:29] LABS: BACTERIA,URINE None Seen /HPF (None Seen); CLARITY,URINE CLEAR (CLEAR); MUCUS,URINE Few Strands; RBC,URINE 0-5 /HPF (0-5); SQUAMOUS EPITHELIAL CELL,UR RARE Squamous (<= Few); WBC,URINE 0-3 /HPF (0-3)
[2024-04-07 09:30] LABS: CASTS, URINE 0-2 Hyaline Casts /LPF
== END 2024-04-07 08:52 | disposition home or self-care (01) ==
LOC: LAB 08:51
PROVIDERS: ATTEND Orthopaedic Surgery
DX: Z01.818 Encounter for other preprocedural examination (principal); N39.0 Urinary tract infection, site not specified
CPT/HCPCS: 36415; 80048; 81001; 85025; 87086; 93005